=== PATIENT | male | born 1990 | race Caucasian/White ===

== ENCOUNTER 2017-12-01 10:15 | Observation (INO) ==
[2017-12-01] MEDS ORDERED: 0.9 % Sodium Chloride 1,000 ML IVC ONE ×2 (10:31→14:31)
--- NOTE | 2017-12-01 10:35 | Emergency Department Note ---
Disposition Clinical Impression: Nausea & vomiting Qualifiers: Vomiting type: unspecified Vomiting Intractability: intractable Qualified Code( s): R11.2 - Nausea with vomiting, unspecified Disposition: Admitted As Inpatient Condition: Good Forms: ED Satisfaction Letter Time of Disposition: 14:31 Nausea/Vomiting/Diarrhea HPI - General Chief complaint: ED Nausea/Vomiting/Diarrhea Stated complaint: Dehydrated seen yesterday,[place] Time Seen by Provider: 12/01/17 10:24 Source: patient Mode of arrival: ambulatory Limitations: no limitations Nursing Notes Reviewed: Yes Vital Signs Reviewed: Yes - History of Present Illness HPI Narrative: 27-year-old male comes in and states he has nausea vomiting keep anything down. Patient was seen yesterday for the same was given fluids had lab work and CT scan. Pt Subjective Complaint: nausea, vomiting Onset (ago): day(s) Description of emesis: food contents Associated Abdominal Pain: Yes If pain, Location of pain: other Severity: moderate Quality: aching Consistency: constant Worsens with: eating - Related Data Home Medications Medication Instructions Recorded Confirmed Pre B2 11/06/17 Ranitidine HCl 11/06/17 Previous Rx's Medication Instructions Recorded Fexofenadine HCl 180 mg PO DAILY #20 tablet 11/06/17 Fluticasone Propionate Nasal 2 spray NS DAILY #1 bottle 11/06/17 [Flonase] Meclizine HCl [Verticalm] 25 mg PO TID PRN #12 tablet 11/06/17 Dicyclomine [Bentyl] 10 mg PO QID PRN #15 capsule 11/25/17 Omeprazole 20 mg PO DAILY #21 tablet. 11/25/17 Ondansetron ODT [Zofran ODT] 4 mg SL Q6HR PRN #15 tab.rapdis 11/25/17 Allergies Allergy/AdvReac Type Severity Reaction Status Date / Time No Known Allergies Allergy Verified 12/01/17 10:18 All systems ED: reviewed and negative except as stated. Constitutional: Denies: fever, chills, weakness, weight change Eyes: Denies: eye pain, eye discharge, vision change ENT ED: Denies: ear pain, throat pain, dental pain, hearing loss, epistaxis, congestion, dysphagia Cardiovascular: Denies: chest pain, palpitations, dyspnea on exertion, edema, syncope Respiratory: Denies: cough, dyspnea, wheezes, hemoptysis, stridor Gastrointestinal: Reports: abdominal pain, nausea, vomiting. Denies: diarrhea, constipation, hematemesis, melena, hematochezia Genitourinary: Denies: urgency, dysuria, frequency, hematuria Musculoskeletal: Denies: back pain, neck pain, arthralgia, myalgia Integumentary: Denies: rash, abrasion, lesions Neurological: Denies: headache, weakness, numbness, paresthesias, confusion, abnormal gait, vertigo Psychiatric: Denies: anxiety, depression, suicidal thoughts, homicidal thoughts , auditory hallucinations, visual hallucinations Endocrine: Denies: fatigue Hematological/Lymphatic: Denies: easy bleeding, easy bruising Allergic/Immunologic: Denies: facial swelling, urticaria Past Medical History - Past Medical History Medical history: Reports: no medical history Surgical history: Reports: other Psychiatric history: Reports: no psych history - Social History Smoking Status: Former smoker Smokeless Tobacco Status: No Alcohol use: Reports: none Drug use: Reports: none Physical Exam - General Limitations: no limitations General appearance: alert, in no apparent distress - Head Head exam: atraumatic, normocephalic, normal inspection - Eye Eye exam: Present: normal appearance, PERRL, EOMI - ENT ENT exam: normal exam, normal oropharynx, mucous membranes moist - Neck Neck exam: Present: normal inspection, full ROM, trachea midline - Chest Chest inspection: Present: normal inspection, symmetric chest wall rise - Respiratory Respiratory exam: Present: normal lung sounds bilaterally - Cardiovascular Cardiovascular exam: Present: regular rate, normal rhythm, normal heart sounds - Abdominal Exam Abdominal exam: Present: soft, tenderness. Absent: guarding, rebound Abdominal tenderness: Present: diffuse - Extremities Exam Extremities exam: Present: normal inspection, full ROM. Absent: tenderness, pedal edema - Expanded Lower Extremity Exam Neurovascular/Tendon exam: Absent: motor deficit, sensory deficit, tendon deficit Gait: observed and normal - Back Exam Back exam: Present: normal inspection, full ROM. Absent: tenderness - Neurological Exam Neurological exam: Present: alert, oriented X3 - Psychiatric Psychiatric exam: Present: normal affect, normal mood - Skin Skin exam: Present: warm, dry, intact, normal color Course - Reevaluation(s) Reevaluation #1: 27-year-old persistent nausea vomiting. Lab work looks good except he does have ketones in his urine. It is his second visit within [address] yesterday that was negative. Time: 14:30 - Consultations Consultation #1: Discussed with , admit. Time: 14:30 Vital Signs Temperature 98 F 12/01/17 10:19 Pulse Rate 75 12/01/17 10:19 Respiratory Rate 20 12/01/17 10:19 Blood Pressure 153/91 12/01/17 10:19 O2 Sat by Pulse Oximetry 97 12/01/17 10:19 Temperature 98 F 12/01/17 10:31 Pulse Rate 75 12/01/17 10:31 Respiratory Rate 20 12/01/17 10:31 Blood Pressure 153/91 12/01/17 10:31 O2 Sat by Pulse Oximetry 97 12/01/17 10:31 Oxygen Delivery Oxygen Delivery Room Air Nausea/Vomiting/Diarrhea - Lab Data Lab results reviewed: Yes I reviewed the patient's lab results. Result diagrams: 12/01/17 11:00 12/01/17 11:00 Lab Results 12/01/17 12/01/17 12/01/17 Range/Units 11:00 11:00 11:06 WBC 7.9 (4.3-11.1) K/mcL RBC 5.15 (4.19-5.50) M/mcL Hgb 16.4 (12.9-16.9) g/dL Hct 45.5 (37.5-50.1) % MCV 88.3 (83.0-100.0) fL MCH 31.8 (28.0-33.3) pg MCHC 36.0 H (31.6-35.5) g/dL RDW 13.6 (11.5-14.5) % Plt Count 196 (140-400) K/mcL MPV 10.8 (9.4-12.4) fL Immature Gran % 0.4 (0-4) % Seg Neutrophils % 70.9 % Lymphocytes % 20.9 % Monocytes % 7.1 % Eosinophils % 0.3 % Basophils % 0.4 % Neutrophils # 5.6 (1.6-8.9) K/mcL Lymphocytes # 1.6 (0.6-4.6) K/mcL Monocytes # 0.6 (0.0-1.3) K/mcL Eosinophils # 0.0 (0.0-0.6) K/mcL Basophils # 0.0 (0.0-0.2) K/mcL Sodium 138 (136-145) mEq/L Potassium 4.0 (3.5-5.1) mEq/L Chloride 106 (98-107) mEq/L Carbon Dioxide 23 (23-29) mEq/L BUN 11 (6-20) mg/dL Creatinine 1.01 (0.70-1.30) mg/dL Est GFR ( Amer) > 60 (> 60) Est GFR (Non-Af Amer) > 60 (> 60) BUN/Creatinine Ratio 11 (6-26) Glucose 96 (70-105) mg/dL Calculated Osmolality 285 (280-300) Calcium 9.9 (8.6-10.3) mg/dL Urine Color Yellow (Yellow) Urine Clarity Clear (Clear) Urine pH 7.0 (5.0-8.0) pH Units Ur Specific [place] 1.013 (1.010-1.025) Urine Protein Negative (Neg-Trace) mg/dL Urine Glucose (UA) Normal (Normal) mg/dL Urine Ketones 40 H (Negative) mg/dL Urine Blood Negative (Negative) Urine Nitrite Negative (Negative) Urine Bilirubin Negative (Negative) Urine Urobilinogen Normal (Normal) mg/dL Ur Leukocyte Esterase Negative (Negative) Ur Culture Indicated? NO (NO)
[2017-12-01] MEDS ORDERED: Ondansetron 4 MG/2 ML VIAL IVP ONE (10:37)
[2017-12-01 11:15] LABS: Bilirubin,Urine Negative (Negative); Blood,Urine Negative (Negative); Clarity,Urine Clear (Clear); Color,Urine Yellow (Yellow); Glucose,Urine (UA) Normal (Normal); Ketones,Urine 40 mg/dL (Negative); Leukocyte Esterase,Urine Negative (Negative); Nitrite,Urine Negative (Negative); Protein,Urine Negative (Neg-Trace); Specific Gravity,Urine 1.013 (1.010-1.025); Urobilinogen,Urine Normal (Normal)
[2017-12-01 11:17] LABS: Basophils % 0.4 %; Eosinophils % 0.3 %; Hematocrit 45.5 % (37.5-50.1); Hemoglobin 16.4 g/dL (12.9-16.9); Immature Granulocytes % 0.4 % (0-4); Lymphocytes # 1.6 K/mcL (0.6-4.6); Lymphocytes % 20.9 %; Mean Corpuscular Hemoglobin 31.8 pg (28.0-33.3); Mean Corpuscular Volume 88.3 fL (83.0-100.0); Mean Platelet Volume 10.8 fL (9.4-12.4); Monocytes # 0.6 K/mcL (0.0-1.3); Monocytes % 7.1 %; Neutrophils # 5.6 K/mcL (1.6-8.9); Platelet Count 196 K/mcL (140-400); Red Blood Count 5.15 M/mcL (4.19-5.50); Red Cell Distribution Width 13.6 % (11.5-14.5); Segmented Neutrophils % 70.9 %
[2017-12-01 11:35] LABS: BUN/Creatinine Ratio 11 (6-26); Blood Urea Nitrogen 11 mg/dL (6-20); Calcium 9.9 mg/dL (8.6-10.3); Carbon Dioxide 23 mEq/L (23-29); Chloride 106 mEq/L (98-107); Glucose 96 mg/dL (70-105); Osmolality,Calculated 285 (280-300); Sodium 138 mEq/L (136-145); eGFR For African Americans > 60 (> 60); eGFR For Non-African Americans > 60 (> 60)
--- NOTE | 2017-12-01 15:04 | Internal Med History&Physical ---
Date of Encounter: 12/01/17 Time of Encounter: 14:50 Internal Medicine - H&P: HPI Chief complaint: Nausea or vomiting, dysuria Admitted From: Home Plans for Post Hospital Care: Home History of present illness: Mr. Nicholas is a 27 year old male patient with no significant past medical history presented to the ER with complaints of intractable nausea and vomiting. He develops the symptoms anytime he drinks or eats anything including water. He otherwise does not throw up. He had mild hematemesis 2-3 days back. His symptoms of nausea and vomiting have been going on for at least 1 week. He had been in the ER 2 times before for similar complaints. He is also complaining of burning with urination that began yesterday and pain in his testicular region while urinating. He also describes alternating fever and chills. He has not had this kind of complaints prior to the past week. He does have mild abdominal discomfort. No diarrhea. Past Med Surg Social Fam HX - Past Medical History Attestation: Yes The following information was validated with the patient. Source: patient Medical history: no medical history Psychiatric history: no psych history - Past Surgical History Surgical History: other Additional surgical history: surgery on right hand - Social History Smoking Status: Former smoker Smokeless Tobacco Status: No Alcohol use: none Drug use: none - Additional Family History Additional family history: Family history reviewed and found to be noncontributory at this time. Internal Medicine - H&P: Meds Dicyclomine [Bentyl] 10 mg PO QID PRN #15 capsule 11/25/17 [Rx] Omeprazole 20 mg PO DAILY #21 tablet. 11/25/17 [Rx] Ondansetron ODT [Zofran ODT] 4 mg SL Q6HR PRN #15 tab.rapdis 11/25/17 [Rx] Ranitidine HCl [Acid [employer]] 150 mg PO BID 12/01/17 [History] 3 Allergy/AdvReac Type Severity Reaction Status Date / Time No Known Allergies Allergy Verified 12/01/17 10:18 All Systems PM: A 10-system review of systems was performed and is negative for pertinent findings except as documented above in the HPI. - Constitutional Constitutional: chills, fever(s), no night sweats - EENT Eyes: no change in vision, no discharge, no pain, no photophobia Ears: no ear discharge, no ear pain, no tinnitus Nose, mouth and throat: no dysphagia, no nasal discharge, no neck pain, no sore throat - Cardiovascular Cardiovascular ROS IM: no chest pain, no diaphoresis, no dyspnea, no lightheadedness, no palpitations, no syncope - Respiratory Respiratory: no cough, no dyspnea, no wheezing, no excessive phlegm production - Gastrointestinal Gastrointestinal: abdominal pain, nausea, vomiting, no diarrhea, no hematemesis , no hematochezia, no melena - Musculoskeletal Musculoskeletal ROS IM: no numbness, no tingling - Integumentary Integumentary IM: no rash, no unusual bruising - Neurological Neurological ROS: no confusion, no convulsions, no focal weakness, no numbness, no tingling, no tremor(s) - Hematologic/Lymphatic Hematologic/Lymphatic: no easy bruising - Constitutional Vitals: Temp Pulse Resp BP Pulse Ox 98 F 75 20 153/91 97 12/01/17 10:31 12/01/17 10:31 12/01/17 10:31 12/01/17 10:31 12/01/17 10:31 General appearance: Present: cooperative, A&O X 3, pleasant, answers questions appropriately - Eye Eye exam: Present: EOMI, PERRL, conjuntiva pink, sclera anicteric - Neck Neck exam general surgery: Present: supple, trachea midline. Absent: lymphadenopathy - Respiratory Respiratory exam: Present: CTAB. Absent: accessory muscle use, rales, rhonchi, wheezes - Cardiovascular Cardiovascular exam: Present: RRR, +S1, +S2. Absent: diastolic murmur, gallop, rubs, systolic murmur - GI/Abdominal GI/Abdominal exam: Present: normal bowel sounds, soft, no peritoneal signs. Absent: distended, tenderness - Extremities Exam Extremities exam: Present: warm, radial pulses palpable and symmetrical. Absent : calf tenderness, cyanotic, pedal edema - Neurological Exam Neurological exam: Present: CN II-XII intact, oriented X3, no focal deficits. Absent: facial droop, speech deficit - Skin Skin exam: Present: dry, intact Internal Med - H&P Results - Labs CBC & Chem 7: 12/01/17 11:00 12/01/17 11:00 Labs: Short CBC 12/01/17 Range/Units 11:00 WBC 7.9 (4.3-11.1) K/mcL Hgb 16.4 (12.9-16.9) g/dL Hct 45.5 (37.5-50.1) % Plt Count 196 (140-400) K/mcL Neutrophils # 5.6 (1.6-8.9) K/mcL BMP 12/01/17 11:00 Sodium 138 Potassium 4.0 Chloride 106 Carbon Dioxide 23 BUN 11 Creatinine 1.01 Glucose 96 Calcium 9.9 Urine 12/01/17 Range/Units 11:06 Urine Color Yellow (Yellow) Urine Clarity Clear (Clear) Urine pH 7.0 (5.0-8.0) pH Units Ur Specific [place] 1.013 (1.010-1.025) Urine Protein Negative (Neg-Trace) mg/dL Urine Glucose (UA) Normal (Normal) mg/dL - Impressions CT scan of the abdomen and pelvis done yesterday showed no acute intra- abdominal process - Assessment and plan (1) Nausea and vomiting Current Visit: Yes Status: Acute Assessment and plan: Associated with food. Uncertain etiology. We will treat symptomatically for now. Check urine drug screen. Place patient on antiemetics. IV fluids. Keep nothing by mouth for now. Qualifiers: Vomiting type: cyclical vomiting Vomiting Intractability: intractable Qualified Code(s): G43.A1 - Cyclical vomiting, intractable (2) Dysuria Current Visit: Yes Status: Acute Assessment and plan: Unclear etiology. Patient does have negative urinalysis. Will check urine for STI since patient is also complaining of testicular pain while urinating. (3) Abdominal pain Current Visit: Yes Status: Acute Assessment and plan: Could be related to gastritis/recurrent bouts of emesis. We will place him on PPI Qualifiers: Abdominal location: epigastric Qualified Code(s): R10.13 - Epigastric pain - Time Spent With Patient Total time spent is greater than 50% in coordination of care (as documented) at patient's floor/unit and/or counseling patient:
[2017-12-01] MEDS ORDERED: Naloxone 0.4 MG/ML INJ IVP PRN (15:13)
[2017-12-01] MEDS ORDERED: Ondansetron 4 MG/2 ML VIAL IVP PRN (15:14)
[2017-12-01 16:43] LABS: Amphetamine Screen,Urine Negative ng/mL (Cutoff=1000); Barbiturate Screen,Urine Negative ng/mL (Cutoff=200); Benzodiazepines Screen,Urine Negative ng/mL (Cutoff=200); Cannabinoid Screen,Urine Positive ng/mL (Cutoff = 50); Cocaine Screen,Urine Negative ng/mL (Cutoff= 300); Opiate Screen,Urine Negative ng/mL (Cutoff=300); Phencyclidine Screen,Urine Negative ng/mL (Cutoff=25)
[2017-12-01] MEDS ORDERED: *HR* Promethazine 25 MG/ML VIAL IVP PRN (16:56)
[2017-12-01] MEDS: Ringers Solution, Lactated 1,000 ML IVC SCH (17:35)
[2017-12-01] MEDS: Acetaminophen 325 MG TABLET PO PRN (23:23)
[2017-12-02] MEDS: Ringers Solution, Lactated 1,000 ML IVC SCH ×4 (02:02→22:30)
[2017-12-02 04:02] LABS: Basophils % 0.6 %; Eosinophils # 0.1 K/mcL (0.0-0.6); Hematocrit 41.2 % (37.5-50.1); Immature Granulocytes % 0.3 % (0-4); Lymphocytes # 2.5 K/mcL (0.6-4.6); Lymphocytes % 36.3 %; Mean Corpuscular HGB Conc 35.2 g/dL (31.6-35.5); Mean Corpuscular Hemoglobin 31.7 pg (28.0-33.3); Mean Platelet Volume 11.1 fL (9.4-12.4); Monocytes # 0.6 K/mcL (0.0-1.3); Monocytes % 8.8 %; Neutrophils # 3.6 K/mcL (1.6-8.9); Platelet Count 175 K/mcL (140-400); Red Blood Count 4.58 M/mcL (4.19-5.50); Red Cell Distribution Width 13.5 % (11.5-14.5)
[2017-12-02 04:03] LABS: Hemoglobin 14.5 g/dL (12.9-16.9)
[2017-12-02 04:23] LABS: BUN/Creatinine Ratio 11 (6-26); Blood Urea Nitrogen 10 mg/dL (6-20); Calcium 8.9 mg/dL (8.6-10.3); Carbon Dioxide 23 mEq/L (23-29); Chloride 105 mEq/L (98-107); Glucose 82 mg/dL (70-105); Osmolality,Calculated 280 (280-300); Potassium 3.7 mEq/L (3.5-5.1); Sodium 136 mEq/L (136-145); eGFR For African Americans > 60 (> 60); eGFR For Non-African Americans > 60 (> 60)
[2017-12-02] MEDS: Pantoprazole 40 MG VIAL IVP SCH (08:27)
[2017-12-02] MEDS: Acetaminophen 325 MG TABLET PO PRN (12:49)
--- NOTE | 2017-12-02 15:30 | Internal Med Progress Note ---
Date of Encounter: 12/02/17 Time of Encounter: 10:00 - Assessment and plan (1) Nausea and vomiting Current Visit: Yes Status: Acute Assessment and plan: Associated with food. Uncertain etiology. We will treat symptomatically for now. Urine with marijuana. Add Reglan. Trying clear liquids. Qualifiers: Vomiting type: cyclical vomiting Vomiting Intractability: intractable Qualified Code(s): G43.A1 - Cyclical vomiting, intractable (2) Abdominal pain Current Visit: Yes Status: Acute Assessment and plan: Could be related to gastritis/recurrent bouts of emesis. On PPI. Has appt with GI on 12/19 Qualifiers: Abdominal location: epigastric Qualified Code(s): R10.13 - Epigastric pain (3) Dysuria Current Visit: Yes Status: Acute Assessment and plan: Unclear etiology. STD work up negative. Symptoms have improved. - Time Spent With Patient Total time spent is greater than 50% in coordination of care (as documented) at patient's floor/unit and/or counseling patient: - Subjective Interval history: Mr Nicholas is currently in observation for intractable nausea and vomiting. He remains moderate to high risk. Mr Nicholas says he is hungry but still as some nausea. No fever or chills. He says he is willing to try clear liquids. Says he has not had marijuana in a month but does admit that hot shower makes him feel better. Feels like something is stuck in his throat at times. - Constitutional Vitals: Temp Pulse Resp BP Pulse Ox 97.5 F L 62 14 130/71 99 12/02/17 12:16 12/02/17 12:16 12/02/17 12:16 12/02/17 12:16 12/02/17 12:16 General appearance: Present: cooperative, A&O X 3, pleasant, answers questions appropriately - Head Head exam: Present: normocephalic - Eye Eye exam: Present: conjuntiva pink - ENT ENT exam: Present: mucous membranes dry - Respiratory Respiratory exam: Present: CTAB. Absent: rales, rhonchi, wheezes - Cardiovascular Cardiovascular exam: Present: RRR. Absent: systolic murmur, tachycardia - GI/Abdominal GI/Abdominal exam: Present: normal bowel sounds, soft, no peritoneal signs. Absent: mass, tenderness - Extremities Exam Extremities exam: Present: warm. Absent: tenderness - Neurological Exam Neurological exam: Present: alert, oriented X3, no focal deficits - Skin Skin exam: Present: dry, warm Internal Medicine: Result - Labs CBC & Chem 7: 12/02/17 03:25 12/02/17 03:25 Labs: Short CBC 12/02/17 Range/Units 03:25 WBC 6.8 (4.3-11.1) K/mcL Hgb 14.5 D (12.9-16.9) g/dL Hct 41.2 (37.5-50.1) % Plt Count 175 (140-400) K/mcL Neutrophils # 3.6 (1.6-8.9) K/mcL BMP 12/02/17 03:25 Sodium 136 Potassium 3.7 Chloride 105 Carbon Dioxide 23 BUN 10 Creatinine 0.89 Glucose 82 Calcium 8.9 Consult Discharge Plan - Plan Referrals: Sánchez Kirkland MD [Primary Care Provider] -
[2017-12-02] MEDS ORDERED: Promethazine 12.5 MG in 0.9 % Sodium Chloride 50 ML IVPB PRN ×2 (15:40→15:41)
[2017-12-03] MEDS: Ringers Solution, Lactated 1,000 ML IVC SCH ×2 (04:07→04:09)
[2017-12-03] MEDS: Pantoprazole 40 MG VIAL IVP SCH (08:07)
--- NOTE | 2017-12-03 12:07 | Internal Med Progress Note ---
Date of Encounter: 12/03/17 Time of Encounter: 12:04 - Assessment and plan (1) Nausea and vomiting Current Visit: Yes Status: Acute Assessment and plan: Currently on clear liquids. Says he is still symptomatic. Will make NPO tonight and ask GI to see tomorrow. Continue antiemetics. Qualifiers: Vomiting type: cyclical vomiting Vomiting Intractability: intractable Qualified Code(s): G43.A1 - Cyclical vomiting, intractable (2) Abdominal pain Current Visit: Yes Status: Acute Assessment and plan: Symptomatic treatment. Qualifiers: Abdominal location: epigastric Qualified Code(s): R10.13 - Epigastric pain (3) Dysuria Current Visit: Yes Status: Resolved - Time Spent With Patient Total time spent is greater than 50% in coordination of care (as documented) at patient's floor/unit and/or counseling patient: - Subjective Interval history: Mr Nicholas is currently in observation for intractable nausea and vomiting. He remains moderate to high risk. Mr Nicholas continues to have some nausea and pain. Has a feeling of "fullness " in throat area - mostly when he swallows but denies difficulty with food. Feels like something is in his chest. Also has "hunger" like pain in abdomen. - Constitutional Vitals: Temp Pulse Resp BP Pulse Ox 98.1 F 55 14 122/73 99 12/03/17 10:21 12/03/17 10:21 12/03/17 10:21 12/03/17 10:21 12/03/17 10:21 General appearance: Present: cooperative, A&O X 3, pleasant, answers questions appropriately - Head Head exam: Present: normocephalic - Eye Eye exam: Present: EOMI, conjuntiva pink - ENT ENT exam: Present: mucous membranes moist - Respiratory Respiratory exam: Present: decreased breath sounds, CTAB. Absent: rales, rhonchi, wheezes - Cardiovascular Cardiovascular exam: Present: RRR. Absent: tachycardia - GI/Abdominal GI/Abdominal exam: Present: normal bowel sounds, soft. Absent: tenderness - Extremities Exam Extremities exam: Present: warm. Absent: tenderness - Neurological Exam Neurological exam: Present: alert, oriented X3, no focal deficits - Skin Skin exam: Present: dry, warm Internal Medicine: Result - Labs CBC & Chem 7: 12/02/17 03:25 12/02/17 03:25 Consult Discharge Plan - Plan Referrals: Sánchez Kirkland MD [Primary Care Provider] -
[2017-12-03] MEDS ORDERED: Azithromycin 250 MG TABLET PO ONE (14:49)
[2017-12-03] MEDS: Acetaminophen 325 MG TABLET PO PRN (16:17)
[2017-12-04] MEDS: Pantoprazole 40 MG VIAL IVP SCH (07:18)
[2017-12-04] MEDS: Azithromycin 250 MG TABLET PO SCH (07:18)
--- NOTE | 2017-12-04 11:28 | Gastroenterology Consult Note ---
Date of Encounter: 12/04/17 Time of Encounter: 10:50 - Assessment and plan (1) Abdominal pain Current Visit: Yes Status: Acute Assessment and plan: - Generalized abdominal pain - Unclear etiology. possibly GERD vs PUD vs gastritis. - History of GERD on ranitidine. - Reports worse with spicy foods. - Associated nausea and vomiting yesterday Plan - plan for EGD today with Dr. Walters - Further recommendations pending results - Mechanical soft diet after. - Will obtain hepatitis panel as well as RUQ US to rule out liver etiology. Qualifiers: Abdominal location: epigastric Qualified Code(s): R10.13 - Epigastric pain (2) GERD (gastroesophageal reflux disease) Current Visit: Yes Status: Chronic Assessment and plan: - Per history - Patient reports good control with H2 valerie however he does admit that sitting up relieves some symptoms and spicy/acidic foods exacerbate - Will perform EGD as above. - PPI started. Protonix 40 mg daily. Qualifiers: Esophagitis presence: esophagitis presence not specified Qualified Code(s) : K21.9 - Gastro-esophageal reflux disease without esophagitis (3) Nausea and vomiting Current Visit: Yes Status: Resolved Assessment and plan: as above. resolved Qualifiers: Vomiting type: cyclical vomiting Vomiting Intractability: intractable Qualified Code(s): G43.A1 - Cyclical vomiting, intractable - Time Spent With Patient Total time spent is greater than 50% in coordination of care (as documented) at patient's floor/unit and/or counseling patient: GI History of Present Illness - Data of Consult Consult date: 12/04/17 Requesting Physician: John Ochoa DO - Consult Narrative Reason for consult: Intactable nausea, vomiting History of present illness: Mr. Nicholas is a 27 year old male with a PMHx of GERD presents to ED with a complaint of nausea, vomiting, epigastric pain. He states that pain has been present for 3 weeks and persistent. Sharp in nature without radiation. Worsened with lying on his left side and with food, spicy foods worse. He states he normally takes ranitidine with good relief of symptoms of his GERD. He also admits to nausea and vomiting in this time. Vomit contains food contents, no blood. This has been present for the past couple days but has resolved since admission. Also admits to globus sensation in this time. He has never had these symptoms before and has never had colonoscopy or EGD. Denies any associated symptoms of fevres, chills, CP, SOB, changes in BM, hematochezia, melena, sick contacts. No NSAID use. Former smoker, quit 3 months ago. Denies alcohol or drug use. Past Med Surg Social Fam HX - Past Medical History Medical history: no medical history Psychiatric history: no psych history - Past Surgical History Surgical History: other Additional surgical history: surgery on right hand - Social History Smoking Status: Former smoker Smokeless Tobacco Status: No Alcohol use: none Drug use: none - Gastrointestinal NSAID use: none Gastrointestinal: Present: as per HPI, abdominal pain, heartburn, nausea, vomiting. Absent: change in bowel habits, coffee ground emesis, constipation, diarrhea, hematemesis, hematochezia, melena Additional Comments: globus sensation - Constitutional Constitutional: no anorexia, no fatigue, no fever(s) - Cardiovascular Cardiovascular ROS: Absent: chest pain - Respiratory Respiratory IM: Absent: dyspnea - Integumentary Integumentary GI: Absent: rash - Constitutional Vitals: Temp Pulse Resp BP Pulse Ox 98.3 F 63 15 121/76 98 12/04/17 07:43 12/04/17 07:43 12/04/17 07:43 12/04/17 07:43 12/04/17 07:43 Exam: Gen.: Vitals noted. No acute distress. AAOx3 HEENT: PERRL/EOMI, oropharynx clear, Normocephalic, atraumatic, MMM Cardiac: RRR, no murmur, +S1/S2 Pulmonary: CTA bilaterally, no wheezes, rales or rhonchi, equal chest expansion Abdomen: soft, nontender, BS noted, no guarding, no rebound. MSK: ROM intact, no joint swelling noted Extremities: no BLE edema, nontender calf, no cyanosis or clubbing Neuro: A&Ox3, moves all extremities, no focal deficits Psych: Appropriate mood and behavior Results - Labs CBC & Chem 7: 12/02/17 03:25 12/02/17 03:25 Labs: Last Result Calcium 8.9 mg/dL (8.6-10.3) 12/02/17 03:25 Urine Opiates Screen Negative ng/mL ([id number]) 12/01/17 11:00 Entire Visit Hgb 14.5 g/dL (12.9-16.9) D 12/02/17 03:25 Hct 41.2 % (37.5-50.1) 12/02/17 03:25 - Impressions Impressions Chest X-Ray 12/03/17 11:58 IMPRESSION: No active cardiopulmonary disease D/ / Augie Felder MD / Augie Felder MD Interpreting Provider: Augie Felder MD Consult Discharge Plan - Plan Referrals: Sánchez Kirkland MD [Primary Care Provider] -
[2017-12-04] MEDS: Acetaminophen 325 MG TABLET PO PRN ×2 (11:50→21:35)
--- NOTE | 2017-12-04 12:45 | Anesthesia Evaluation PreOp ---
Date of Encounter: 12/04/17 Time of Encounter: 13:48 - Past History Planned Operation: EGD Cardiac History: Denies any Significant Hx Pulmonary History: Former smoker (quit 6 months ago, smoked for 6 years) BATH STEWARD/STEWARDESS History: Denies Any Significant HX Other Medical History: GERD Anesthesia History: No Prior Anesthetic Complications, Past Anesthesia Alcohol Use: none Drug use: none Medications and Allergies Dicyclomine [Bentyl] 10 mg PO QID PRN #15 capsule 11/25/17 [Rx] Omeprazole 20 mg PO DAILY #21 tablet. 11/25/17 [Rx] Ondansetron ODT [Zofran ODT] 4 mg SL Q6HR PRN #15 tab.rapdis 11/25/17 [Rx] Ranitidine HCl [Acid Medicine And Health Service Manager] 150 mg PO BID 12/01/17 [History] 3 Allergy/AdvReac Type Severity Reaction Status Date / Time No Known Allergies Allergy Verified 12/01/17 10:18 - Meds/Allergy Pre-op Review Medications Reviewed: Yes Allergies Reviewed: Yes Beta Blockers on Current Med List: No Anesthesia Results - Labs 12/02/17 03:25 12/02/17 03:25 - Imaging EKG: report reviewed (11/30/2017 SINUS RHYTHM MODERATE INTRAVENTRICULAR CONDUCTION DELAY) Additional studies: 07/18/2016 Echo Impressions: LVEF 65%. Normal LV chamber size, wall thickness and function. Normal left ventricular diastolic function. Normal right ventricular structure and function. No evidence of pulmonary hypertension. No significant valvular dysfunction. Anesthesia Exam Vital Signs/O2 Sat, Most Current Temp Pulse Resp BP Pulse Ox 98.3 F 61 16 125/75 96 12/04/17 12:07 12/04/17 12:07 12/04/17 12:07 12/04/17 12:07 12/04/17 12:07 Height: 6'2''/1.88m Weight: 163 lbs/74.1 kg NPO (# of Hours): 8 Pain Scale: 0 Pain Scale Used: Numeric (1 - 10) - HEENT Pupil (Motor): EOMI Mallampati: II Teeth: Normal Oral Opening: Greater than 3 - BATH STEWARD/STEWARDESS LOC: Oriented BATH STEWARD/STEWARDESS Motor: Normal RUE, Normal LUE, Normal RLE, Normal LLE, Normal Face BATH STEWARD/STEWARDESS Sensory: Normal: RUE, LUE, RLE, LLE, Face - Cardiac Rhythm: Regular Murmur: None - Pulmonary Breath Sounds: bilateral Clear Respiratory Effort: Symmetrical Anesthesia Assess/Plan ASA Score: 2 Modified Enrique Scale for Level of Consciousness: Cooperative, oriented, and tranquil Anesthetic Plan: MAC Monitoring Plan: Standard Monitors
[2017-12-04] MEDS ORDERED: *HR* Propofol 200 MG/20 ML VIAL IVP ONE (13:15)
[2017-12-04] MEDS ORDERED: 0.9 % Sodium Chloride 500 ML IVC SCH (13:45)
[2017-12-04 16:56] LABS: Hepatitis A Antibody IgM Nonreactive (Nonreactive); Hepatitis B Core IgM Nonreactive (Nonreactive); Hepatitis B Surface Antigen Nonreactive (Nonreactive); Hepatitis C Virus Antibody Nonreactive (Nonreactive)
--- NOTE | 2017-12-04 17:40 | Internal Med Progress Note ---
Date of Encounter: 12/04/17 Time of Encounter: 15:30 - Assessment and plan (1) Benign esophageal stricture Current Visit: Yes Status: Acute Assessment and plan: Dilated today (2) Hiatal hernia with gastroesophageal reflux Current Visit: Yes Status: Acute (3) Acute bronchitis Current Visit: Yes Status: Acute Qualifiers: Bronchitis organism: unspecified organism Qualified Code(s): J20.9 - Acute bronchitis, unspecified (4) Abdominal pain Current Visit: Yes Status: Acute Qualifiers: Abdominal location: epigastric Qualified Code(s): R10.13 - Epigastric pain (5) Nausea and vomiting Current Visit: Yes Status: Resolved Qualifiers: Vomiting type: cyclical vomiting Vomiting Intractability: intractable Qualified Code(s): G43.A1 - Cyclical vomiting, intractable - Time Spent With Patient Total time spent is greater than 50% in coordination of care (as documented) at patient's floor/unit and/or counseling patient: - Subjective Interval history: Mr Nicholas is currently in observation for intractable nausea and vomiting. He remains moderate to high risk. Mr Nicholas has returned from EGD - had esophageal stricture which was dilated. GI wants to keep tonight to do further testing. He feels better since dilation. He is hungry. Had gastritis and hiatel hernia as well. - Constitutional Vitals: Temp Pulse Resp BP Pulse Ox 97.6 F 62 16 123/76 98 12/04/17 15:15 12/04/17 15:15 12/04/17 15:15 12/04/17 15:15 12/04/17 15:15 General appearance: Present: cooperative, A&O X 3, pleasant, answers questions appropriately - Head Head exam: Present: normocephalic - Eye Eye exam: Present: EOMI, conjuntiva pink - ENT ENT exam: Present: mucous membranes moist - Respiratory Respiratory exam: Present: CTAB. Absent: rhonchi, wheezes - Cardiovascular Cardiovascular exam: Present: RRR. Absent: tachycardia - GI/Abdominal GI/Abdominal exam: Present: soft. Absent: tenderness - Extremities Exam Extremities exam: Present: warm. Absent: tenderness - Neurological Exam Neurological exam: Present: alert, oriented X3 - Skin Skin exam: Present: dry, warm Internal Medicine: Result - Labs CBC & Chem 7: 12/02/17 03:12/02/17 03:25 Consult Discharge Plan - Plan Referrals: Sánchez Kirkland MD [Primary Care Provider] -
[2017-12-05 05:55] LABS: Hematocrit 42.7 % (37.5-50.1); Hemoglobin 15.1 g/dL (12.9-16.9); Mean Corpuscular HGB Conc 35.4 g/dL (31.6-35.5); Mean Corpuscular Hemoglobin 31.3 pg (28.0-33.3); Mean Corpuscular Volume 88.6 fL (83.0-100.0); Mean Platelet Volume 10.9 fL (9.4-12.4); Platelet Count 193 K/mcL (140-400); Red Blood Count 4.82 M/mcL (4.19-5.50); Red Cell Distribution Width 13.2 % (11.5-14.5)
[2017-12-05 06:13] LABS: BUN/Creatinine Ratio 10 (6-26); Blood Urea Nitrogen 9 mg/dL (6-20); Calcium 9.3 mg/dL (8.6-10.3); Carbon Dioxide 26 mEq/L (23-29); Chloride 104 mEq/L (98-107); Glucose 93 mg/dL (70-105); Osmolality,Calculated 284 (280-300); Potassium 3.6 mEq/L (3.5-5.1); Sodium 138 mEq/L (136-145); eGFR For African Americans > 60 (> 60); eGFR For Non-African Americans > 60 (> 60)
[2017-12-05] MEDS: Azithromycin 250 MG TABLET PO SCH (07:16)
[2017-12-05 11:42] VITALS: BP 112/72
--- NOTE | 2017-12-05 14:53 | Discharge Summary ---
- NOTES TO OUTPATIENT PROVIDER Notes to Outpatient Provider: Placed in observation due to intractable nausea and vomiting. Had EGD showing esophageal stricture which was dilated. Overall he improved but still has some issues with reflux. He was discharged on Reglan and PPI. Orders not resulted at time of discharge: Pending orders 12/04/17 14:39 Surgical Pathology [PTH] Routine 12/04/17 15:08 H. pylori Urease Culture [RM] Stat Date of Encounter: 12/05/17 Time of Encounter: 14:40 - Discharge Diagnosis (1) Benign esophageal stricture Priority: Primary Status: Resolved (2) Hiatal hernia with gastroesophageal reflux Priority: Secondary Status: Chronic (3) Acute bronchitis Priority: Secondary Status: Resolved Qualifiers: Bronchitis organism: unspecified organism Qualified Code(s): J20.9 - Acute bronchitis, unspecified (4) Abdominal pain Priority: Secondary Status: Resolved Qualifiers: Abdominal location: epigastric Qualified Code(s): R10.13 - Epigastric pain (5) Nausea and vomiting Priority: Secondary Status: Resolved Qualifiers: Vomiting type: cyclical vomiting Vomiting Intractability: intractable Qualified Code(s): G43.A1 - Cyclical vomiting, intractable Hospital course: Mr. Nicholas is a 27 year old male presented to ED with intractable nausea and vomiting. He has had multiple ED visits for similar symptoms. He was subsequently placed in observation. Mr Vizcarra was placed in observation for nausea and vomiting. He was given antiemetics. Ultimately started liquid diet but did not tolerate well. He was seen by GI and had EGD showing esophageal stricture which was dilated and gastritis. He also had liver US and hepatitis studies which were negative. Today he feels better for the most part. He is still having some symptoms but feels it is improving. He is tolerating a mechanical soft diet. He is afebrile and ready for discharge home. Discharge discussed with: patient, family - Time Spent with Patient Total time spent providing and/or coordinating discharge services:36min - Discharge Medications Prescriptions: Metoclopramide [Reglan] 5 mg PO QIDAC #30 tablet Omeprazole [PriLOSEC] 40 mg PO DAILY@0630 #30 capsule.dr Jenkins Medications: Dicyclomine [Bentyl] 10 mg PO QID PRN #15 capsule 11/25/17 [Rx] Ondansetron ODT [Zofran ODT] 4 mg SL Q6HR PRN #15 tab.rapdis 11/25/17 [Rx] Metoclopramide [Reglan] 5 mg PO QIDAC #30 tablet 12/05/17 [Rx] Omeprazole [PriLOSEC] 40 mg PO DAILY@0630 #30 capsule. 12/05/17 [Rx] Allergies/Adverse Reactions: 3 Allergy/AdvReac Type Severity Reaction Status Date / Time No Known Allergies Allergy Verified 12/01/17 10:18 Date of admission: 12/01/17 15:49 Primary care physician: Sánchez Kirkland MD Consults: 12/01/17 17:25 Consult to Nutrition [CONS] Routine Comment: Consulting Provider: NUTRITION Reason for Dietary Consult: MST Score 12/03/17 11:59 Consult to Gastroenterology [CONS] Routine Consulting Provider: Gastroenterology Baxter Reason for Consult: Pt with intractable nausea and vomiting and multiple ED visits. Call Completed: Yes Discharging clinician: John Ochoa Anticipated date of discharge: 12/05/17 - Constitutional Vitals: Temp Pulse Resp BP Pulse Ox 97.9 F 60 14 112/72 97 12/05/17 09:55 12/05/17 09:55 12/05/17 09:55 12/05/17 09:55 12/05/17 09:55 General appearance: Present: cooperative, A&O X 3, pleasant, answers questions appropriately - Head Head exam: Present: normocephalic - Eye Eye exam: Present: EOMI, conjuntiva pink - ENT ENT exam: Present: mucous membranes dry - Respiratory Respiratory exam: Present: CTAB. Absent: rales, rhonchi, wheezes - Cardiovascular Cardiovascular exam: Present: RRR. Absent: tachycardia - GI/Abdominal GI/Abdominal exam: Present: soft. Absent: tenderness - Extremities Exam Extremities exam: Present: warm. Absent: tenderness - Neurological Exam Neurological exam: Present: alert, oriented X3 - Skin Skin exam: Present: dry, warm - Patient Status Disposition: Home, Self-Care Condition: Good Functional capacity at discharge: independent ambulation Overall status at discharge: patient is progressing back to baseline - Discharge Instructions Follow Up With: Sánchez Kirkland MD [Primary Care Provider] - 12/13/17 Charley Robbins [Advanced Practice Nurse] - 12/19/17 9:00 am - Diet and Activity Activity: increase activity as tolerated Diet: other (mechanical soft regular)
== END 2017-12-05 15:14 | disposition home or self-care (01) ==
LOC: EMEROO 10:15 → 3ANU 10:15 → SUATTDRO 15:49 → 3ANU 16:31
PROVIDERS: ADMIT Internal Medicine; ATTEND Internal Medicine
PROC: ENDOEBX (2017-12-04 14:00)

== ENCOUNTER 2018-01-03 12:08 | Observation (INO) ==
[2018-01-03] MEDS ORDERED: 0.9 % Sodium Chloride 1,000 ML IVC ONE ×2 (12:30→12:32)
[2018-01-03] MEDS ORDERED: Haloperidol Lactate 5 MG/ML VIAL IVP ONE (12:30)
[2018-01-03] MEDS ORDERED: Capsaicin 0.025% 60 GM TUBE TP ONE (12:31)
[2018-01-03] MEDS ORDERED: Ondansetron 4 MG/2 ML VIAL IVP ONE (12:32)
--- NOTE | 2018-01-03 12:32 | Emergency Department Note ---
Disposition Clinical Impression: Nausea & vomiting Qualifiers: Vomiting type: unspecified Vomiting Intractability: intractable Qualified Code( s): R11.2 - Nausea with vomiting, unspecified Abdominal pain Qualifiers: Abdominal location: unspecified location Qualified Code(s): R10.9 - Unspecified abdominal pain Disposition: Admitted As Inpatient Condition: Good Time of Disposition: 13:00 General Adult HPI - General Chief complaint: ED Nausea/Vomiting/Diarrhea Stated complaint: N/V x 3days Time Seen by Provider: 01/03/18 12:20 Source: patient Limitations: no limitations Nursing Notes Reviewed: Yes Vital Signs Reviewed: Yes - History of Present Illness HPI Narrative: 27-year-old male presents emergency department for nausea, vomiting, epigastric abdominal pain for the last 3 days. Patient states that he has had a similar episode before he had to be admitted to the hospital. He received a EGD which revealed esophageal stricture gastritis. Patient taking omeprazole daily. Reports also taking cannabis. He denies doing it recently though. Patient has Zofran and Reglan at home. These medications have not worked. Patient denies any fevers. He denies any other differences in his abdominal pain from when he got admitted before. Denies any bloody stools, hematuria, dysuria, urinary frequency. Denies fevers. Pain Scale: 10 - Related Data Home Medications Medication Instructions Recorded Confirmed Citalopram [CeleXA] 10 mg PO DAILY 01/03/18 01/03/18 Fexofenadine HCl 180 mg PO DAILY 01/03/18 01/03/18 Pantoprazole Sodium [Protonix] 40 mg PO DAILY 01/03/18 01/03/18 Sucralfate [Carafate] 1 gm PO BID 01/03/18 01/03/18 Previous Rx's Medication Instructions Recorded Dicyclomine [Bentyl] 10 mg PO QID PRN #15 capsule 11/25/17 Allergies Allergy/AdvReac Type Severity Reaction Status Date / Time No Known Allergies Allergy Verified 01/03/18 12:18 All systems ED: reviewed and negative except as stated. Review of Systems: As Per HPI Constitutional: Denies: fever Cardiovascular: Denies: chest pain Respiratory: Denies: cough Gastrointestinal: Reports: abdominal pain, nausea, vomiting. Denies: melena, hematochezia Genitourinary: Denies: urgency, dysuria, frequency Musculoskeletal: Denies: back pain Past Medical History - Past Medical History Medical history: Reports: GERD Surgical history: Reports: other Psychiatric history: Reports: no psych history - Social History Smoking Status: Former smoker Smokeless Tobacco Status: No Alcohol use: Reports: none Drug use: Reports: none Physical Exam - General Limitations: no limitations - Head Head exam: normocephalic - Eye Eye exam: Present: EOMI - ENT ENT exam: normal oropharynx - Neck Neck exam: Present: trachea midline - Chest Chest inspection: Present: symmetric chest wall rise - Respiratory Respiratory exam: Present: normal lung sounds bilaterally. Absent: respiratory distress - Cardiovascular Cardiovascular exam: Present: regular rate, normal rhythm, normal heart sounds - Abdominal Exam Abdominal exam: Present: soft, Non-Tender. Absent: distention, guarding, rebound, rigidity - Extremities Exam Extremities exam: Present: normal capillary refill - Back Exam Back exam: Present: full ROM - Neurological Exam Neurological exam: Present: alert, oriented X3 - Psychiatric Psychiatric exam: Present: normal affect, normal mood - Skin Skin exam: Present: warm, dry, intact, normal color. Absent: rash Course Vital Signs Temperature 98.4 F 01/03/18 12:15 Pulse Rate 81 01/03/18 12:15 Respiratory Rate 18 01/03/18 12:15 Blood Pressure 110/80 01/03/18 12:15 O2 Sat by Pulse Oximetry 98 01/03/18 12:15 Temperature 97.4 F L 01/03/18 22:46 Pulse Rate 55 01/03/18 22:46 Respiratory Rate 15 01/03/18 22:46 Blood Pressure 107/68 01/03/18 22:46 O2 Sat by Pulse Oximetry 99 01/03/18 22:46 Oxygen Delivery Oxygen Delivery Room Air Medical Decision Making - [facility] Narrative Medical decision making narrative: 27-year-old male past medical history of gastritis and esophageal stricture presents emergency department with concern for nausea vomiting. Patient had extensive stay previously for nausea vomiting that lasted 5 days. Patient has dry mucous membranes on exam. Patient was given Haldol, Station cream, and multiple doses of Zofran. He also received fluids. Normal saline. Patient had some resolution of symptoms, but they recurred. Patient did not have a leukocytosis. Hemoglobin was 17.2. This could be because he is hemoconcentrated. Kidney function was normal. Urinalysis not reveal any evidence of infection. We admitted patient to the hospitalist for further management and observation of his intractable nausea vomiting. This was requested to obtain an acute abdominal series. This revealed no acute [place]. Patient hemodynamic was stable not in acute distress at time of admission. Chest/Abdomen X-ray 01/03/18 16:27 IMPRESSION: 1. No acute abnormality. D/ / Don Burton MD / Don Burton MD Interpreting Provider: Don Burton MD Vital Signs Temperature 98.4 F 01/03/18 12:15 Pulse Rate 81 01/03/18 12:15 Respiratory Rate 18 01/03/18 12:15 Blood Pressure 110/80 01/03/18 12:15 O2 Sat by Pulse Oximetry 98 01/03/18 12:15 Temperature 97.4 F L 01/03/18 22:46 Pulse Rate 55 01/03/18 22:46 Respiratory Rate 15 01/03/18 22:46 Blood Pressure 107/68 01/03/18 22:46 O2 Sat by Pulse Oximetry 99 01/03/18 22:46 Oxygen Delivery Oxygen Delivery Room Air - Lab Data Result diagrams: 01/03/18 12:43 01/03/18 12:43 Lab Results 01/03/18 01/03/18 01/03/18 Range/Units 12:37 12:43 12:43 WBC 7.2 (4.3-11.1) K/mcL RBC 5.51 H (4.19-5.50) M/mcL Hgb 17.2 H (12.9-16.9) g/dL Hct 48.3 (37.5-50.1) % MCV 87.7 (83.0-100.0) fL MCH 31.2 (28.0-33.3) pg MCHC 35.6 H (31.6-35.5) g/dL RDW 12.9 (11.5-14.5) % Plt Count 205 (140-400) K/mcL MPV 10.8 (9.4-12.4) fL Immature Gran % 0.3 (0-4) % Seg Neutrophils % 63.1 % Lymphocytes % 26.5 % Monocytes % 8.4 % Eosinophils % 1.1 % Basophils % 0.6 % Neutrophils # 4.5 (1.6-8.9) K/mcL Lymphocytes # 1.9 (0.6-4.6) K/mcL Monocytes # 0.6 (0.0-1.3) K/mcL Eosinophils # 0.1 (0.0-0.6) K/mcL Basophils # 0.0 (0.0-0.2) K/mcL Sodium 140 (136-145) mEq/L Potassium 4.0 (3.5-5.1) mEq/L Chloride 104 (98-107) mEq/L Carbon Dioxide 26 (23-29) mEq/L BUN 11 (6-20) mg/dL Creatinine 1.05 (0.70-1.30) mg/dL Est GFR ( Amer) > 60 (> 60) Est GFR (Non-Af Amer) > 60 (> 60) BUN/Creatinine Ratio 10 (6-26) Glucose 97 (70-105) mg/dL Calculated Osmolality 289 (280-300) Calcium 10.0 (8.6-10.3) mg/dL Total Bilirubin 0.5 (0.3-1.0) mg/dL AST 13 (13-39) Units/L ALT 13 (7-52) Units/L Alkaline Phosphatase 80 (34-104) Units/L Serum Total Protein 7.4 (6.4-8.9) g/dL Albumin 4.7 (3.5-5.7) g/dL Globulin 2.7 (2.4-3.5) g/dL Albumin/Globulin Ratio 1.7 (1.1-2.2) Lipase 6 L (11-82) Units/L Urine Color Yellow (Yellow) Urine Clarity Clear (Clear) Urine pH 7.5 (5.0-8.0) pH Units Ur Specific [place] 1.018 (1.010-1.025) Urine Protein Negative (Neg-Trace) mg/dL Urine Glucose (UA) Normal (Normal) mg/dL Urine Ketones 15 H (Negative) mg/dL Urine Blood Negative (Negative) Urine Nitrite Negative (Negative) Urine Bilirubin Negative (Negative) Urine Urobilinogen Normal (Normal) mg/dL Ur Leukocyte Esterase Negative (Negative) Ur Culture Indicated? NO (NO) Attestation Statement - Attestation Attestation: Patient was seen with resident physician. I reviewed the history, physical, assessment and plan, and agree with the findings. I also personally evaluated this patient and had [id number] time with this patient. 27-year-old male presents emergency part chief complaint of uncontrolled nausea and vomiting. Patient has a history of cannabinoid nausea and vomiting for which she was admitted approximately a month ago. He states he has not used any for approximately 2 months. He says his been unable keep anything down for the last several days. He has abdominal pain when he is throwing up. He feels like is got some extra stomach acid in the esophagus. He did have an endoscopy and he said he thinks he has a narrow esophagus. He denies fevers chills chest pain or shortness of breath. Review of systems as above remainder negative. Physical exam vital signs are stable. ENT is unremarkable. Heart regular rhythm and rate. Lungs clear. Abdomen is soft and could not elicit tenderness with palpation. Extremities unremarkable. Neurologically intact. Skin no rashes. Psych normal. ED course we will check labs and treat the patient's nausea with Haldol as well as Zofran. I will also rehydrated the patient with normal saline. His disposition will depend on his response to the treatments provided and his laboratory testing and urinalysis. Unfortunately the patient did not stop vomiting throughout his stay. He was nauseous and still having some abdominal discomfort. Therefore contact the hospitalist service to arrange for admission. Per their request and ordered an acute abdominal series which was negative for free air or other abnormalities. Hemodynamically the patient remained stable but nauseous and unable to take by mouth while in the emergency department. I agree with resident physician assessment and plan.
[2018-01-03] MEDS ORDERED: Pantoprazole 40 MG VIAL IVP ONE (12:33)
[2018-01-03 12:45] LABS: Bilirubin,Urine Negative (Negative); Blood,Urine Negative (Negative); Clarity,Urine Clear (Clear); Color,Urine Yellow (Yellow); Glucose,Urine (UA) Normal (Normal); Ketones,Urine 15 mg/dL (Negative); Leukocyte Esterase,Urine Negative (Negative); Nitrite,Urine Negative (Negative); PH,Urine 7.5 pH Units (5.0-8.0); Protein,Urine Negative (Neg-Trace); Specific Gravity,Urine 1.018 (1.010-1.025); Urobilinogen,Urine Normal (Normal)
[2018-01-03 12:56] LABS: Basophils % 0.6 %; Eosinophils # 0.1 K/mcL (0.0-0.6); Eosinophils % 1.1 %; Hematocrit 48.3 % (37.5-50.1); Hemoglobin 17.2 g/dL (12.9-16.9); Immature Granulocytes % 0.3 % (0-4); Lymphocytes # 1.9 K/mcL (0.6-4.6); Lymphocytes % 26.5 %; Mean Corpuscular HGB Conc 35.6 g/dL (31.6-35.5); Mean Corpuscular Hemoglobin 31.2 pg (28.0-33.3); Mean Corpuscular Volume 87.7 fL (83.0-100.0); Mean Platelet Volume 10.8 fL (9.4-12.4); Monocytes # 0.6 K/mcL (0.0-1.3); Monocytes % 8.4 %; Neutrophils # 4.5 K/mcL (1.6-8.9); Platelet Count 205 K/mcL (140-400); Red Blood Count 5.51 M/mcL (4.19-5.50); Red Cell Distribution Width 12.9 % (11.5-14.5); Segmented Neutrophils % 63.1 %
[2018-01-03 13:23] LABS: Alanine Aminotransferase 13 Units/L (7-52); Albumin 4.7 g/dL (3.5-5.7); Albumin/Globulin Ratio 1.7 (1.1-2.2); Alkaline Phosphatase 80 Units/L (34-104); Aspartate Amino Transferase 13 Units/L (13-39); BUN/Creatinine Ratio 10 (6-26); Bilirubin,Total 0.5 mg/dL (0.3-1.0); Blood Urea Nitrogen 11 mg/dL (6-20); Carbon Dioxide 26 mEq/L (23-29); Chloride 104 mEq/L (98-107); Globulin 2.7 g/dL (2.4-3.5); Glucose 97 mg/dL (70-105); Lipase 6 Units/L (11-82); Osmolality,Calculated 289 (280-300); Sodium 140 mEq/L (136-145); Total Protein 7.4 g/dL (6.4-8.9); eGFR For Non-African Americans > 60 (> 60)
[2018-01-03] MEDS ORDERED: traMADol 50 MG TABLET PO PRN (17:13)
[2018-01-03] MEDS ORDERED: Naloxone 0.4 MG/ML INJ IVP PRN (17:13)
[2018-01-03] MEDS ORDERED: Acetaminophen 325 MG TABLET PO PRN (17:13)
[2018-01-03] MEDS ORDERED: Ondansetron 4 MG/2 ML VIAL IVP PRN (17:34)
--- NOTE | 2018-01-03 17:46 | Internal Med History&Physical ---
Date of Encounter: 01/03/18 Time of Encounter: 15:10 Internal Medicine - H&P: HPI Chief complaint: nuasea/vomiting Admitted From: Emergency Dept Plans for Post Hospital Care: Home History of present illness: Mr. Nicholas is a 27 year old male who presents with complaints of protracted nausea and vomiting for the last 3 days, generalized epigastric pain, and dehydration. He has had no fevers or chills. He has had no diarrhea. His last bowel movement was 3 days ago. He had a recent EGD about 2 weeks ago which noted esophageal stenosis and gastritis. He did receive esophageal dilatation during the procedure. He improved after that and was doing well until about 3-4 days ago when his symptoms returned. Symptoms are similar to his initial presentation a few weeks ago. He denies any chest pain, shortness breath, fevers, chills, or night sweats. I saw patient in the ER and exam was relatively benign. However, given recent procedure and dilatation, I requested the ER order an acute abdominal series to rule out any kind of free air. I reviewed the x-ray personally and do not appreciate any free air. Official radiology interpretation is pending, however. Past Med Surg Social Fam HX - Past Medical History Attestation: Yes The following information was validated with the patient. Source: patient, old records reviewed Medical history: GERD Psychiatric history: no psych history - Past Surgical History Surgical History: other Additional surgical history: surgery on right hand - Social History Smoking Status: Former smoker Smokeless Tobacco Status: No Alcohol use: none Drug use: none Current living situation: Home Recent Out of Country Travel Within the Last 8 Weeks: No - Family History Mother Hx Family GI Disorders: No Father Hx Family GI Disorders: No Internal Medicine - H&P: Meds Dicyclomine [Bentyl] 10 mg PO QID PRN #15 capsule 11/25/17 [Rx] Citalopram [CeleXA] 10 mg PO DAILY 01/03/18 [History] Fexofenadine HCl 180 mg PO DAILY 01/03/18 [History] Pantoprazole Sodium [Protonix] 40 mg PO DAILY 01/03/18 [History] Sucralfate [Carafate] 1 gm PO BID 01/03/18 [History] 3 Allergy/AdvReac Type Severity Reaction Status Date / Time No Known Allergies Allergy Verified 01/03/18 12:18 - Constitutional Constitutional: no chills, no fever(s) - EENT Eyes: no blurry vision, no change in vision Ears: no ear pain Nose, mouth and throat: no nasal congestion, no sinus pressure, no sore throat - Cardiovascular Cardiovascular ROS IM: no chest pain, no dyspnea - Respiratory Respiratory: no cough, no chest congestion, no excessive phlegm production, no change in phlegm color - Gastrointestinal Gastrointestinal: abdominal pain, belching, heartburn, nausea, vomiting, no diarrhea, no hematemesis, no hematochezia, no melena - Genitourinary Genitourinary ROS male: no dysuria, no flank pain, no hematuria - Musculoskeletal Musculoskeletal ROS IM: no arthralgias, no back pain - Integumentary Integumentary IM: no rash, no jaundice - Neurological Neurological ROS: no dizziness, no focal weakness, no frequent falls, no headache(s) - Psychiatric Psychiatric: no anxiety, no depression - Endocrine Endocrine IM: no polydipsia, no polyuria - Allergic/Immunologic Allergic/Immunologic: GI upset with certain foods, no wheezing - Constitutional Vitals: Temp Pulse Resp BP Pulse Ox 98.4 F 80 15 129/80 99 01/03/18 12:21 01/03/18 16:19 01/03/18 16:19 01/03/18 16:19 01/03/18 16:19 General appearance: Present: cooperative, mild distress, pleasant, no acute distress - Head Head exam: Present: atraumatic, normal inspection - Eye Eye exam: Present: EOMI, PERRL. Absent: scleral icterus Pupils: Present: normal accommodation - ENT ENT exam: Present: mucous membranes dry, normal exam, normal oropharynx - Neck Neck exam general surgery: Present: full ROM, supple. Absent: tenderness, nuchal rigidity, thyromegaly - Respiratory Respiratory exam: Present: CTAB. Absent: chest wall tenderness, rales, rhonchi , wheezes - Cardiovascular Cardiovascular exam: Present: RRR, +S1, +S2. Absent: diastolic murmur, systolic murmur - GI/Abdominal GI/Abdominal exam: Present: normal bowel sounds, soft, tenderness (mild epigastric), no peritoneal signs. Absent: guarding, hepatomegaly, mass, rebound , splenomegaly - Extremities Exam Extremities exam: Present: full ROM, warm, radial pulses palpable and symmetrical. Absent: calf tenderness, pedal edema, tenderness - Back Exam Back exam: Absent: CVA tenderness (L), CVA tenderness (R) - Neurological Exam Neurological exam: Present: alert, CN II-XII intact, oriented X3, no focal deficits - Psychiatric Psychiatric exam: Present: normal affect, normal mood - Skin Skin exam: Present: dry, warm. Absent: rash Internal Med - H&P Results - Labs CBC & Chem 7: 01/03/18 12:43 01/03/18 12:43 - Diagnostic Studies Chest x-ray Status: image reviewed by me (AAS--negative) - Assessment and plan (1) Nausea and vomiting Current Visit: Yes Status: Acute Assessment and plan: 1. Will treat with IVF, anti-emetics, and PPI/Carafate. 2. Consult GI for concerns of possible need for further endoscopy. 3. AAS imaging as above. Qualifiers: Vomiting type: unspecified Vomiting Intractability: intractable Qualified Code(s): R11.2 - Nausea with vomiting, unspecified (2) Esophageal stenosis Current Visit: Yes Status: Chronic Assessment and plan: 1. S/P EGD 2 weeks ago. 2. GI consult as above. (3) DVT prophylaxis Current Visit: Yes Status: Acute Assessment and plan: 1. Heparin SQ.
[2018-01-03] MEDS: Pantoprazole 40 MG in 0.9 % Sodium Chloride Mini Bag 100 ML IVC SCH ×2 (18:36→23:34)
[2018-01-03] MEDS: 0.9 % Sodium Chloride w KCl 20 MEQ/1,000 ML MLS IVC SCH (18:36)
[2018-01-03] MEDS: *HR* Heparin 5,000 UNIT/ML VIAL SQ SCH (18:36)
[2018-01-03] MEDS: Sucralfate 1 GM TABLET PO SCH (22:52)
[2018-01-04 04:14] LABS: Basophils % 0.6 %; Eosinophils # 0.2 K/mcL (0.0-0.6); Eosinophils % 4.1 %; Hematocrit 40.9 % (37.5-50.1); Immature Granulocytes % 0.2 % (0-4); Lymphocytes # 2.2 K/mcL (0.6-4.6); Lymphocytes % 41.4 %; Mean Corpuscular HGB Conc 34.2 g/dL (31.6-35.5); Mean Corpuscular Hemoglobin 30.9 pg (28.0-33.3); Mean Corpuscular Volume 90.3 fL (83.0-100.0); Mean Platelet Volume 10.5 fL (9.4-12.4); Monocytes # 0.5 K/mcL (0.0-1.3); Neutrophils # 2.4 K/mcL (1.6-8.9); Platelet Count 173 K/mcL (140-400); Red Blood Count 4.53 M/mcL (4.19-5.50); Red Cell Distribution Width 12.9 % (11.5-14.5); Segmented Neutrophils % 44.7 %
[2018-01-04 04:21] LABS: INR 1.1; Prothrombin Time 12.9 Seconds (9.4-12.1)
[2018-01-04 04:23] LABS: Activated Partial Thrombo Time 36.3 Seconds (26.0-36.0)
[2018-01-04] MEDS: Pantoprazole 40 MG in 0.9 % Sodium Chloride Mini Bag 100 ML IVC SCH ×2 (04:33→08:25)
[2018-01-04] MEDS: 0.9 % Sodium Chloride w KCl 20 MEQ/1,000 ML MLS IVC SCH (04:33)
[2018-01-04 04:34] LABS: Alanine Aminotransferase 10 Units/L (7-52); Albumin 3.8 g/dL (3.5-5.7); Albumin/Globulin Ratio 1.9 (1.1-2.2); Alkaline Phosphatase 60 Units/L (34-104); Aspartate Amino Transferase 11 Units/L (13-39); BUN/Creatinine Ratio 8 (6-26); Bilirubin,Total 0.7 mg/dL (0.3-1.0); Blood Urea Nitrogen 8 mg/dL (6-20); Carbon Dioxide 27 mEq/L (23-29); Chloride 107 mEq/L (98-107); Glucose 95 mg/dL (70-105); Magnesium 1.8 mg/dL (1.6-2.6); Osmolality,Calculated 292 (280-300); Potassium 4.2 mEq/L (3.5-5.1); Sodium 142 mEq/L (136-145); Total Protein 5.8 g/dL (6.4-8.9); eGFR For Non-African Americans > 60 (> 60)
[2018-01-04] MEDS: *HR* Heparin 5,000 UNIT/ML VIAL SQ SCH (05:56)
[2018-01-04] MEDS: Sucralfate 1 GM TABLET PO SCH ×2 (08:25→11:55)
[2018-01-04] MEDS ORDERED: 0.9 % Sodium Chloride 1,000 ML IVC SCH (08:45)
[2018-01-04] MEDS ORDERED: Pantoprazole 40 MG VIAL IVP SCH (09:00)
--- NOTE | 2018-01-04 10:24 | Gastroenterology Consult Note ---
Date of Encounter: 01/04/18 Time of Encounter: 09:20 - Assessment and plan (1) Nausea and vomiting Current Visit: Yes Status: Acute Assessment and plan: Recent EGD which showed esophageal stricture and gastritis. Did not tolerate omeprazole due to migraines, recently changed to protonix bid. Advised to use zofran and zantac prn. US gallbladder was normal except for possible sludge. Will proceed with HIDA scan, can be done as an outpatient. Qualifiers: Vomiting type: unspecified Vomiting Intractability: intractable Qualified Code(s): R11.2 - Nausea with vomiting, unspecified (2) Abdominal pain Current Visit: No Status: Resolved Qualifiers: Abdominal location: epigastric Qualified Code(s): R10.13 - Epigastric pain - Time Spent With Patient Total time spent is greater than 50% in coordination of care (as documented) at patient's floor/unit and/or counseling patient: GI History of Present Illness - Data of Consult Patient: known to practice within the last 3 years Consult date: 01/04/18 Requesting Physician: Lissette Sanchez MD - Consult Narrative Reason for consult: nausea/vomiting History of present illness: Mr. Nicholas is a 27 year old male who presents with complaints of protracted nausea and vomiting for the last 3 days, generalized epigastric pain, and dehydration. He has had no fevers or chills. He has had no diarrhea. His last bowel movement was 3 days ago. He denies any chest pain, shortness breath , fevers, chills, or night sweats. Pt was discharged on 12/05/17 on reglan and prilosec, he was seen in the office and had continued feeling of something being stuck in his throat, gerd and nausea. He reported increased anxiety and muscle cramps so the reglan was stopped, omeprazole was added and he was advised to use zantac and zofran prn. He has been seen in the ER one other time since then for chest pain. EGD:12/20 benign stenosis dilated, gastritis, normla duodenum biopsies negative for dysplasia or H pylori No nsaids No anticoagulants Past Med Surg Social Fam HX - Past Medical History Medical history: GERD Psychiatric history: no psych history - Past Surgical History Surgical History: other Additional surgical history: surgery on right hand - Social History Smoking Status: Former smoker Smokeless Tobacco Status: No Alcohol use: none Drug use: none - Family History Mother Hx Family GI Disorders: No Father Hx Family GI Disorders: No Review of Systems: GI: as per [facility]: denies fever, or chills EYES: denies yellow discoloration ENT: denies pain with swallowing or difficulty swallowing CARDIO: denies chest pain, palpitations RESP: No Shortness of breath with exertion : denies change in color of urine NEURO: denies any weakness HEME: Denies any bruising MS: denies joint pain, joint swelling or back pain. DERM: denies rash or itching PSYCH: Denies history of anxiety or depression - Constitutional Vitals: Temp Pulse Resp BP Pulse Ox 97.5 F L 85 14 100/61 95 01/04/18 07:01 01/04/18 07:01 01/04/18 07:01 01/04/18 07:01 01/04/18 07:01 Exam: CONSTITUTIONAL:~alert, no acute distress.~HEAD:~normocephalic.~EYES:~no jaundice.~NECK:~no obvious swelling.~HEART:~regular rate and rhythm, no murmurs. ~LUNGS:~bilateral good air entry.~ABDOMEN:~non distended, soft, non tender, no masses palpable, no organomegaly.~RECTAL EXAM:~Deferred.~EXTREMITIES:~no clubbing, cyanosis or edema.~SKIN:~no stigmata of chronic liver disease.~ NEUROLOGIC:~no obvious focal defect.~~~~ Results - Labs CBC & Chem 7: 01/04/18 04:00 01/04/18 04:00 Labs: Last Result Calcium 9.0 mg/dL (8.6-10.3) 01/04/18 04:00 Entire Visit Hgb 14.0 g/dL (12.9-16.9) D 01/04/18 04:00 Hct 40.9 % (37.5-50.1) 01/04/18 04:00 PT 12.9 Seconds (9.4-12.1) H 01/04/18 04:00 Total Bilirubin 0.7 mg/dL (0.3-1.0) 01/04/18 04:00 AST 11 Units/L (13-39) L 01/04/18 04:00 ALT 10 Units/L (7-52) 01/04/18 04:00 Lipase 6 Units/L (11-82) L 01/03/18 12:43 - ABG ABG results: PT/INR, D-dimer PT 12.9 Seconds (9.4-12.1) H 01/04/18 04:00 - Impressions Impressions Chest/Abdomen X-ray 01/03/18 16:27 IMPRESSION: 1. No acute abnormality. D/ / Don Burton MD / Don Burton MD Interpreting Provider: Don Burton MD Consult Discharge Plan - Plan Referrals: Sánchez Kirkland MD [Primary Care Provider] - 01/15/18 11:00 am Ana Tamayo MD [Partnered Physician] - (Web request entered. Office will call patient with date and time of appointment. Thank you)
[2018-01-04 10:51] VITALS: BP 105/66
--- NOTE | 2018-01-04 11:36 | Discharge Summary ---
- NOTES TO OUTPATIENT PROVIDER Notes to Outpatient Provider: follow up with Dr. Tamayo as OP, for HIDA scan and esophageal stenosis Date of Encounter: 01/04/18 Time of Encounter: 11:29 - Discharge Diagnosis (1) Nausea and vomiting Priority: Primary Status: Acute Qualifiers: Vomiting type: unspecified Vomiting Intractability: unspecified Qualified Code(s): R11.2 - Nausea with vomiting, unspecified (2) Esophageal stenosis Priority: Secondary Status: Chronic (3) DVT prophylaxis Priority: Secondary Status: Acute Hospital course: Mr. Nicholas is a 27 year old male who presents with complaints of protracted nausea and vomiting for the last 3 days, generalized epigastric pain, and dehydration. He has had no fevers or chills. He has had no diarrhea. His last bowel movement was 3 days ago. He denies any chest pain, shortness breath , fevers, chills, or night sweats. Pt was discharged on 12/05/17 on reglan and prilosec, he was seen in the office and had continued feeling of something being stuck in his throat, gerd and nausea. He reported increased anxiety and muscle cramps so the reglan was stopped, protonix was added and he was advised to use zantac and zofran prn. EGD:12/20 benign stenosis dilated, gastritis, normla duodenum biopsies negative for dysplasia or H pylori No nsaids No anticoagulants he was admitted and was started on IVF. his symtoms resolved. Gi was consulted " Did not tolerate omeprazole due to migraines, recently changed to protonix bid. Advised to use zofran and zantac prn. US gallbladder was normal except for possible sludge. Will proceed with HIDA scan, can be done as an outpatient." PIR was informed to provide patietn with out patient appointment. - Time Spent with Patient Total time spent providing and/or coordinating discharge services: Less than 30 minutes - Discharge Medications Prescriptions: Ondansetron HCl [Zofran] 4 mg PO Q8HR PRN #15 tab PRN Reason: Nausea Pantoprazole Sodium [Protonix] 40 mg PO BID 30 Days #60 tablet. Ranitidine Oral Soln [Zantac] 75 mg PO BID PRN #30 oral.syg PRN Reason: Indigestion Home Medications: Dicyclomine [Bentyl] 10 mg PO QID PRN #15 capsule 11/25/17 [Rx] Citalopram [CeleXA] 10 mg PO DAILY 01/03/18 [History] Fexofenadine HCl 180 mg PO DAILY 01/03/18 [History] Sucralfate [Carafate] 1 gm PO BID 01/03/18 [History] Ondansetron HCl [Zofran] 4 mg PO Q8HR PRN #15 tab 01/04/18 [Rx] Pantoprazole Sodium [Protonix] 40 mg PO BID 30 Days #60 tablet. 01/04/18 [Rx] Ranitidine Oral Soln [Zantac] 75 mg PO BID PRN #30 oral.lisandro 01/04/18 [Rx] Allergies/Adverse Reactions: 3 Allergy/AdvReac Type Severity Reaction Status Date / Time No Known Allergies Allergy Verified 01/03/18 12:18 Date of admission: 01/03/18 15:59 Primary care physician: Sánchez Kirkland MD Consults: 01/03/18 17:31 Consult to Physician [CONS] Routine Consulting Provider: Ana Tamayo Reason for Consult: intractable N/V after recent EGD; dilatation; h/o esophageal stenosis Call Completed: No - Constitutional Vitals: Temp Pulse Resp BP Pulse Ox 97.4 F L 70 14 105/66 98 01/04/18 10:46 01/04/18 10:46 01/04/18 10:46 01/04/18 10:46 01/04/18 10:46 General appearance: Present: cooperative, mild distress, pleasant, no acute distress Exam: General: Patient is alert, oriented, no acute distress, Head: atraumatic, normocephalic, Eye: normal appearance, PERRL, no scleral icterus, no conjunctival injection ENT: mucous membranes moist, normal external ear exam Neck: normal inspection, trachea midline, full ROM, no carotid bruits Chest: normal inspection, symmetric chest rise Respiratory: Good respiratory effort. Bilateral breath sounds are clear without wheezing, crackles, or rhonchi. Cardiovascular: Regular rate and rhythm. s1 and s2 No clicks, rubs, gallops, or murmors. Abdomen: Bowel sounds present normoactive x-4 quadrants. Abdomen is soft, nondistended. no Epigastric tenderness. No guarding or rebound. No organomegaly noted, obese musculoskeletal: Spontaneously moving all extremities. no edema, no calf tenderness Skin: warm, dry, intact. Neuro: Alert and oriented x4. Sensation light touch intact. Cranial nerves 2- 12 is intact. Not aphasic, gait is steady, rapid hand movements intact, finger- to-nose intact, Psych: Patient's affect is normal - Patient Status Disposition: Home, Self-Care Condition: Good Functional capacity at discharge: independent ambulation Overall status at discharge: patient is progressing back to baseline - Discharge Instructions Follow Up With: Sánchez Kirkland MD [Primary Care Provider] - 01/15/18 11:00 am Ana Tamayo MD [Partnered Physician] - (Web request entered. Office will call patient with date and time of appointment. Thank you) - Diet and Activity Activity: increase activity as tolerated Diet: advance to your usual diet
== END 2018-01-04 14:32 | disposition home or self-care (01) ==
LOC: EMEROO 12:08 → 3ANU 12:08 → SUATTDRO 15:59 → 3ANU 16:59
PROVIDERS: ADMIT Internal Medicine; ATTEND Internal Medicine